=== PATIENT | female | born 1940 | race Two or more races ===

== ENCOUNTER 2016-08-31 07:55 | Inpatient (IN) | payer MEDICARE ==
[~2016-08-31] VITALS: Ht 154.9 cm; Wt 62.6 kg
--- NOTE | 2016-08-31 09:00 | NUR ---
GPS ADMITTING NOTE: PATIENT 76 Y/O FEMALE ADMITTED FROM [facility] FROM NURSING FACILITY PER 5150 HOLD FOR DTO ,GD PATIENT A/O TO SELF ONLY , CONFUSED ,DEMENTED, COMBATIVE,AGITATED PARANOID , PT HAS HX DEMENTIA, UPON F/F ASSESSMENT PATIENT CONFUSED , NOT MAKING ANY SENSE, CONFUSED UNABLE TO ANSWER ANY QUESTIONS, CAN NOT PROVIDE CLEAR HISTORY, NO C/O PAIN OR ANY COMPLAINS, DR GRAJEDA AWARE AND NOTIFIED TO RECONCILED MEDICATIONS , DR CHAND NOTIFIED WITH ADMITTING ORDERS , ALL BELONGINGS CHECKED.
[2016-08-31] MEDS ORDERED: CRAN3875 PO (09:13)
[2016-08-31] MEDS ORDERED: VITA1CAP PO (09:13)
[2016-08-31] MEDS ORDERED: SENN8.6T60 PO (09:13)
[2016-08-31] MEDS ORDERED: ACET325T53 PO (09:13)
[2016-08-31] MEDS ORDERED: MULT1TAB73 PO (09:16)
[2016-08-31] MEDS ORDERED: ZOLPIDEM TARTRATE 5 MG TABLET PO PRN (10:00)
[2016-08-31] MEDS ORDERED: MAGNESIUM HYDROXIDE 30 ML UDC PO PRN (10:00)
[2016-08-31] MEDS ORDERED: MAG HYDROX/AL HYDROX/SIMETH 30 ML UDC PO PRN (10:00)
[2016-08-31] MEDS ORDERED: ACETAMINOPHEN 325 MG TABLET PO PRN (10:00)
[2016-08-31] MEDS ORDERED: LORAZEPAM 0.5 MG TABLET PO PRN (10:00)
[2016-08-31 10:18] VITALS: BP 139/61
[2016-08-31 11:28] VITALS: BP 139/61
[2016-08-31 15:45] VITALS: BP 130/74
[2016-08-31] MEDS: QUETIAPINE FUMARATE 25 MG TABLET PO SCH ×2 (16:46→16:59)
[2016-08-31 20:14] VITALS: BP 134/81
[2016-09-01 07:34] LABS: BASOPHILS % (AUTO) 0.3 % (0.0-2.0); EOSINOPHILS # (AUTO) 0.1 /CMM (0.0-0.7); EOSINOPHILS % (AUTO) 1.2 % (0.0-6.0); HEMATOCRIT 44 % (33-45); HEMOGLOBIN 14.6 g/dL (11.5-14.8); LYMPHOCYTES # (AUTO) 1.6 /CMM (0.8-4.8); LYMPHOCYTES % (AUTO) 23.3 % (20.0-44.0); MEAN CORPUSCULAR HEMOGLOBIN 34 PG (26.0-33.0); MEAN CORPUSCULAR HGB CONC 34 g/dl (31.0-36.0); MEAN CORPUSCULAR VOLUME 101 fL (82-100); MONOCYTES # (AUTO) 0.8 /CMM (0.1-1.30); MONOCYTES % (AUTO) 12.3 % (2.0-12.0); NEUTROPHILS # (AUTO) 4.2 /CMM (1.8-8.9); NEUTROPHILS % (AUTO) 62.9 % (43.0-81.0); PLATELET COUNT (AUTO) 168 /CMM (150-450); RDW COEFFICIENT OF VARIATION 12.8 (11.5-15.0); RED BLOOD CELL COUNT(AUTO) 4.33 MIL/uL (4.0-5.2); WHITE BLOOD COUNT (AUTO) 6.7 K/uL (4.3-11.0)
[2016-09-01 08:51] LABS: ALBUMIN 4.1 g/dL (3.4-5.0); BILIRUBIN,TOTAL 0.9 mg/dL (0.2-1.0); CALCIUM, SERUM 9.6 mg/dL (8.5-10.1); CREATININE 0.6 mg/dL (0.6-1.3); POTASSIUM 4.1 mmol/L (3.5-5.1); TOTAL PROTEIN, SERUM 7.5 g/dL (6.4-8.2)
[2016-09-01 09:45] LABS: ALBUMIN 4.1 g/dL (3.4-5.0); BILIRUBIN,TOTAL 0.8 mg/dL (0.2-1.0); MAGNESIUM 1.9 mg/dL (1.8-2.4); PHOSPHORUS 4.2 mg/dL (2.5-4.9); TOTAL PROTEIN, SERUM 7.6 g/dL (6.4-8.2)
[2016-09-01 09:59] LABS: BILIRUBIN,DIRECT 0.2 mg/dL (0.0-0.2)
[2016-09-01] MEDS ORDERED: OLANZAPINE 10 MG VIAL IM STA (11:12)
--- NOTE | 2016-09-01 11:30 | NUR ---
ADMINISTERED ZYPREXA 5 MG/ML IM RIGHT OUTER GLUTEAL AREA FOR AGGRESSIVE BEHAVIOR, PARANOID, YELLING, PATIENT REFUSED TAKE MEDICATION PRESCRIBED, PATIENT REFUSED V/S TO BE TAKEN. PATIENT IN THE ROOM, SAFETY PRECAUTION MAINTAINED ALL THE TIME.
--- NOTE | 2016-09-01 13:14 | NUR ---
WOUND CARE CONSULT: PATIENT SEEN AND SKIN ASSESSMENT DONE. PATIENT ALERT, ALTERED MENTATION, AMBULATORY, INDEPENDENT WITH BED MOBILITY, CONTINENT, SAWYER 16. SEE TODAY'S SKIN ASSESSMENT IN PCS ALONG WITH RECOMMENDATIONS DISCUSSED WITH NURSING STAFF. MD IN AGREEMENT WITH PLAN OF CARE. Addendum: 09/01/16 at 1315 by JERED CEDENO WNDNU Amended: Links added.
[2016-09-01] MEDS: QUETIAPINE FUMARATE 25 MG TABLET PO SCH ×2 (14:06→17:50)
[2016-09-01 16:00] VITALS: BP 127/68
--- NOTE | 2016-09-01 16:14 | NUR ---
Initial Discharge Plan: Patient was currently residing at [facility] at [address] [place] [address] . SW spoke with patient's brother Robinson Crowder who confirmed that patient was living at the facility [facility]. SW spoke with Aracelis from the facility who confirmed that patient was living there but stated that someone from the hospital had spoken to her (possibly from [facility]) and recommended patient be in a locked facility. Patient may possibly need placement. SW will follow-up with MD, family, and patient regarding most appropriate discharge. SW will help form a safe and proper discharge.
[2016-09-01 16:26] LABS: CHOLESTEROL 192 mg/dL (<200); HDL CHOLESTEROL 76 mg/dL (40-60); LDL 100 mg/dL (0-99); TRIGLYCERIDES 49 mg/dL (30-150)
[2016-09-01] MEDS: NEOMY SULF/BACITRAC ZN/POLY 15 GM TUBE TP SCH (17:51)
[2016-09-01 20:00] VITALS: BP 158/75
--- NOTE | 2016-09-02 06:33 | NUR ---
GPS/RN NOTE: PATIENT REFUSED TO SIGN CONSENT FOR MRI. STATED." I WILL WALK OUT NOW IF YOU ARE GOING TO DO THAT."
--- NOTE | 2016-09-02 06:37 | NUR ---
GPS/RN NOTE: INSTRUCTED TO CALL WHEN READY TO COLLECT URINE. PATIENT UNDERSTOOD INSTRUCTION GIVEN.
--- NOTE | 2016-09-02 06:44 | NUR ---
TEXTED DR. HEATH FOR MRI APPROVAL.
[2016-09-02 06:54] LABS: BASOPHILS % (AUTO) 0.4 % (0.0-2.0); EOSINOPHILS # (AUTO) 0.1 /CMM (0.0-0.7); EOSINOPHILS % (AUTO) 1.1 % (0.0-6.0); HEMATOCRIT 41 % (33-45); HEMOGLOBIN 13.7 g/dL (11.5-14.8); LYMPHOCYTES # (AUTO) 1.3 /CMM (0.8-4.8); LYMPHOCYTES % (AUTO) 22.3 % (20.0-44.0); MEAN CORPUSCULAR HEMOGLOBIN 33 PG (26.0-33.0); MEAN CORPUSCULAR HGB CONC 33 g/dl (31.0-36.0); MEAN CORPUSCULAR VOLUME 100 fL (82-100); MONOCYTES # (AUTO) 0.8 /CMM (0.1-1.30); MONOCYTES % (AUTO) 13.7 % (2.0-12.0); NEUTROPHILS # (AUTO) 3.6 /CMM (1.8-8.9); NEUTROPHILS % (AUTO) 62.5 % (43.0-81.0); PLATELET COUNT (AUTO) 240 /CMM (150-450); RDW COEFFICIENT OF VARIATION 12.7 (11.5-15.0); RED BLOOD CELL COUNT(AUTO) 4.11 MIL/uL (4.0-5.2); WHITE BLOOD COUNT (AUTO) 5.8 K/uL (4.3-11.0)
[2016-09-02 08:00] VITALS: BP 151/81
[2016-09-02] MEDS: NEOMY SULF/BACITRAC ZN/POLY 15 GM TUBE TP SCH (08:57)
[2016-09-02] MEDS: QUETIAPINE FUMARATE 25 MG TABLET PO SCH ×3 (08:57→17:00)
[2016-09-02 11:41] LABS: APPEARANCE,URINE CLEAR (CLEAR); BILIRUBIN,URINE NEGATIVE (NEGATIVE); BLOOD, URINE NEGATIVE Ery/uL (NEGATIVE); COLOR,URINE YELLOW (YELLOW); KETONES,URINE NEGATIVE (NEGATIVE); LEUKOCYTE ESTERASE ,URINE NEGATIVE (NEGATIVE); NITRITE, URINE NEGATIVE (NEGATIVE); PROTEIN,URINE NEGATIVE (NEGATIVE); UGLUCOSE NEGATIVE (NEGATIVE); UROBILINOGEN,URINE 0.2 EU/dL (0.2)
[2016-09-02 12:01] LABS: CANNABINOID, URINE NEGATIVE (NEGATIVE); PHENCYCLIDINE SCREEN,URINE NEGATIVE (NEGATIVE)
--- NOTE | 2016-09-02 14:00 | NUR ---
PATIENT CONFUSED, DEMANDING, IRRITABLE EASILY, REFUSED DOPPLER US, EEG, MRI, AND MEDICATION, DR CHAND NOTIFIED.
--- NOTE | 2016-09-02 15:51 | NUR ---
Psychosocial assessment was reviewed and I concur with the information provided. No changes are necessary. Angelita Vásquez, [facility] [id number] Addendum: 09/02/16 at 1551 by ANGELITA VÁSQUEZ SW Amended: Links added.
[2016-09-02 16:00] VITALS: BP 136/77
--- NOTE | 2016-09-02 17:00 | NUR ---
patient a/o x1, confused, irritable, refused 1300, and 1700 medication, dr lamb aware of, also notified brother. continued monitoring.
[2016-09-02 20:16] VITALS: BP 127/58
--- NOTE | 2016-09-02 21:02 | NUR ---
RN NOTES: PATIENT AMBULATES IN THE HALLWAY, STEADY GAIT,A/O X2 WITH CONFUSION, NOTED DISORGANIZE THOUGHTS, DELUSIONAL, HARD TO FOLLOW DIRECTION, REFUSED MRI BRAIN WWO CONTRAST,ALSO REFUSING MEDICATIONS, MD AWARE, SAFETY PRECAUTIONS MAINTAINED AT ALL TIMES, WILL CONTINUE TO MONITOR Q 15 MINS. TO MAINTAIN SAFETY, AND MONITOR CHANGES IN BEHAVIOR.
--- NOTE | 2016-09-03 06:29 | NUR ---
UNABLE TO DO MRI, PATIENT CONFUSED.NO MRI CHECKLIST/PATIENT REFUSED 09/02/2016
[2016-09-03 08:39] VITALS: BP 120/70
[2016-09-03] MEDS: NEOMY SULF/BACITRAC ZN/POLY 15 GM TUBE TP SCH (09:22)
[2016-09-03] MEDS: QUETIAPINE FUMARATE 25 MG TABLET PO SCH ×3 (09:22→17:00)
--- NOTE | 2016-09-03 13:41 | NUR ---
SAMIR faxed clinicals to [facility] for Review. SAMIR will follow-up with admissions.
[2016-09-03 15:53] VITALS: BP 151/73
[2016-09-03 20:41] VITALS: BP 129/76
--- NOTE | 2016-09-03 20:44 | NUR ---
GPS/RN NOTE: AWAKE, ALERT, ORIENTED X3. AMBULATORY, SELF CARE. NO APPARENT DISTRESS NOTED. COOPERATIVE, CALM. SELF CARE. WILL CONTINUE TO MONITOR Q 15 MINS. TO MAINTAIN SAFETY
[2016-09-04 08:00] VITALS: BP 138/67
[2016-09-04] MEDS: QUETIAPINE FUMARATE 25 MG TABLET PO SCH ×3 (09:00→17:00)
[2016-09-04] MEDS: NEOMY SULF/BACITRAC ZN/POLY 15 GM TUBE TP SCH (09:31)
--- NOTE | 2016-09-04 13:22 | NUR ---
CHECKED WITH THE PATIENT'S NURSE TODAY FOR MRI,STILL REFUSING MAY BE TOMORROW PER NURSE.
[2016-09-04 16:00] VITALS: BP 140/73
--- NOTE | 2016-09-04 18:12 | NUR ---
PATIENT A/O X1, CONFUSED, REFUSED 0900 ,1300, AND 1700 MEDICATION DELUSIONAL, PACING AROUND, DR CHAND AWARE OF. CONTINUED MONITORING.
[2016-09-04 20:00] VITALS: BP 127/63
--- NOTE | 2016-09-04 20:00 | NUR ---
RN OPENING NOTES FOUND Pt IN ACTIVITY ROOM. UP AMBULATING. NO S/S OF ACUTE DISTRESS OR SOB NOTED. NON COMPLIANT WITH MEDS. SELF-CARE. NO COMPLAINTS MADE AT THIS TIME. OFFERED SLEEPING PILL, WILL REQUEST IF NEEDED AT A LATER TIME. WILL CONTINUE TO MONITOR Q15MIN FOR SAFETY.
--- NOTE | 2016-09-04 21:34 | NUR ---
RN NOTES REPORT GIVEN TO SARAH RILEY FOR RACHEAL OF Pt.
[2016-09-05 08:11] VITALS: BP 107/59
[2016-09-05] MEDS: QUETIAPINE FUMARATE 25 MG TABLET PO SCH ×3 (09:00→16:54)
[2016-09-05] MEDS: NEOMY SULF/BACITRAC ZN/POLY 15 GM TUBE TP SCH (09:00)
[2016-09-05] MEDS ORDERED: OLANZAPINE 10 MG VIAL IM PRN ×2 (10:30→13:00)
[2016-09-05] MEDS ORDERED: QUETIAPINE FUMARATE 25 MG TABLET PO SCH (10:30)
--- NOTE | 2016-09-05 15:08 | NUR ---
SAMIR faxed clinicals to Aracelis (fax:[phone]/ phone: [phone]) from [facility] at [address] [place] [address], for review, SAMIR will follow-up.
[2016-09-05 16:02] VITALS: BP 114/67
--- NOTE | 2016-09-05 19:30 | NUR ---
GPS RN NOTE, RECEIVED PATIENT AWAKE AND IN BED, NO S/S OR COMPLAINTS OF PAIN AT THIS TIME. PATIENT IS DISPLAYING NO S/S OF APPARENT DISTRESS AT THIS TIME. PATIENT BREATHING IS UNLABORED WITH EQUAL RISE AND FALL OF THE CHEST. PATIENT IS ALERT AND ORIENTED X 2-3 ON ROOM AIR WITH A SPO2 99%. PATIENT COMPLIANT WITH MEDICATIONS, ANXIOUS, EASILY AGITATED WITH CARE, DISORGANIZED, CONFUSED AT TIMES, AND NEEDS REORIENTATION. PATIENT DENIES SUICIDE AND HOMICIDAL IDEATIONS AT THIS TIME. PATIENT ASSISTED WITH TURNING AND REPOSITIONING Q2HR AND PRN FOR COMFORT AND CIRCULATION. PATIENT HAS NO NEEDS AT THIS TIME. PATIENT REFUSED SKIN ASSESSMENT TODAY. PATIENT EDUCATED ON THE USE OF THE CALL ISSA. PATIENT BED SIDE RAILS UP X2 FOR SAFETY, BED IS LOCKED AND LOW WILL CONTINUE TO MONITOR AND MAINTAIN SAFETY.
[2016-09-05 20:00] VITALS: BP 117/71
[2016-09-06 08:33] VITALS: BP 134/68
[2016-09-06] MEDS: QUETIAPINE FUMARATE 25 MG TABLET PO SCH ×3 (08:58→17:27)
[2016-09-06] MEDS: NEOMY SULF/BACITRAC ZN/POLY 15 GM TUBE TP SCH (08:59)
[2016-09-06 16:18] VITALS: BP 138/65
[2016-09-06 20:00] VITALS: BP 141/76
--- NOTE | 2016-09-06 20:00 | NUR ---
PATIENT IN ACTIVITY ROOM, ALERT, ABLE TO ANSWERS QUESTIONS APPROPRIATELY, INCOHERENT AT TIMES, WITH EPISODES OF RESTLESSNESS, ABLE TO AMBULATE. ENSURED SAFETY, WILL CONTINUE TO MONITOR.
[2016-09-06 22:00] VITALS: BP 141/76
--- NOTE | 2016-09-07 06:25 | NUR ---
PATIENT IS AWAKE AND ALERT, CALM, NO COMPLAIN OF PAIN, ABLE TO AMBULATE WITHOUT ASSISTANCE, SLEPT THROUGH THE NIGHT AFTER RECEIVING AMBIEN. NO BEHAVIOR CHANGE DURING SHIFT, KEPT SAFE AND COMFORTABLE.
--- NOTE | 2016-09-07 06:25 | NUR ---
PATIENT IN BED, RESTING COMFORTABLY, NO SOB, NOT IN APPARENT PAIN, NO FACIAL GRIMACING, NO BEHAVIORAL DISTURBANCE DURING SHIFT. KEPT SAFE AND COMFORTABLE. WILL CONTINUE TO MONITOR.
[2016-09-07 08:00] VITALS: BP 127/61
[2016-09-07] MEDS: NEOMY SULF/BACITRAC ZN/POLY 15 GM TUBE TP SCH (08:32)
[2016-09-07] MEDS: QUETIAPINE FUMARATE 25 MG TABLET PO SCH ×3 (08:32→17:00)
[2016-09-07 16:00] VITALS: BP 121/68
[2016-09-07 20:18] VITALS: BP 120/55
[2016-09-08 08:00] VITALS: BP 127/73
[2016-09-08] MEDS: NEOMY SULF/BACITRAC ZN/POLY 15 GM TUBE TP SCH (09:01)
[2016-09-08] MEDS: QUETIAPINE FUMARATE 25 MG TABLET PO SCH ×4 (09:01→21:31)
[2016-09-08] MEDS ORDERED: OLANZAPINE 10 MG VIAL IM PRN (13:00)
[2016-09-08 16:00] VITALS: BP 121/70
--- NOTE | 2016-09-08 16:06 | NUR ---
SW spoke to Feroz from [facility] [place] who stated that they have no female beds available at the moment and would not be able to accept the patient at this time.
[2016-09-08 20:00] VITALS: BP 123/66
[2016-09-09 08:21] LABS: CALCIUM, SERUM 8.6 mg/dL (8.5-10.1); CREATININE 0.6 mg/dL (0.6-1.3); MAGNESIUM 1.5 mg/dL (1.8-2.4); PHOSPHORUS 3.6 mg/dL (2.5-4.9); POTASSIUM 4.1 mmol/L (3.5-5.1)
[2016-09-09 08:29] VITALS: BP 143/68
[2016-09-09 08:36] LABS: BASOPHILS % (AUTO) 0.3 % (0.0-2.0); EOSINOPHILS # (AUTO) 0.1 /CMM (0.0-0.7); HEMATOCRIT 38 % (33-45); HEMOGLOBIN 12.8 g/dL (11.5-14.8); LYMPHOCYTES # (AUTO) 1.1 /CMM (0.8-4.8); LYMPHOCYTES % (AUTO) 28.7 % (20.0-44.0); MEAN CORPUSCULAR HEMOGLOBIN 33 PG (26.0-33.0); MEAN CORPUSCULAR HGB CONC 34 g/dl (31.0-36.0); MEAN CORPUSCULAR VOLUME 99 fL (82-100); MONOCYTES # (AUTO) 0.7 /CMM (0.1-1.30); PLATELET COUNT (AUTO) 206 /CMM (150-450); RDW COEFFICIENT OF VARIATION 12.4 (11.5-15.0); RED BLOOD CELL COUNT(AUTO) 3.85 MIL/uL (4.0-5.2); WHITE BLOOD COUNT (AUTO) 3.9 K/uL (4.3-11.0)
[2016-09-09] MEDS: QUETIAPINE FUMARATE 25 MG TABLET PO SCH ×4 (09:16→20:37)
[2016-09-09] MEDS: NEOMY SULF/BACITRAC ZN/POLY 15 GM TUBE TP SCH (09:16)
[2016-09-09 10:47] LABS: BAND % (MANUAL) 1 % (0.0-5.0); BASOPHILS % (MANUAL) 1 % (0.0-2.0); EOSINOPHILS % (MANUAL) 3 % (0-4); LYMPHOCYTES % (MANUAL) 31 % (16-48); MONOCYTES % (MANUAL) 9 % (0-11.0); NEUTROPHILS % (MANUAL) 55 (42-76)
[2016-09-09 10:48] LABS: PLATELET ESTIMATE ADEQUATE
--- NOTE | 2016-09-09 14:00 | NUR ---
DR. CIRSTOBAL,DR. CHAND IN TO SEE PT.
--- NOTE | 2016-09-09 14:21 | NUR ---
Patient was accepted to [facility] [address] [place] [address] .
[2016-09-09] MEDS ORDERED: MAGNESIUM OXIDE 400 MG TABLET PO ONE (14:30)
--- NOTE | 2016-09-09 15:08 | NUR ---
GIVEN MG OXIDE FOR MG LEVEL OF 1.5.
[2016-09-09 16:46] VITALS: BP 109/65
[2016-09-09 20:27] VITALS: BP 105/69
[2016-09-10] MEDS: NEOMY SULF/BACITRAC ZN/POLY 15 GM TUBE TP SCH (08:35)
[2016-09-10] MEDS: QUETIAPINE FUMARATE 25 MG TABLET PO SCH ×4 (08:35→21:34)
[2016-09-10 09:28] VITALS: BP 130/74
[2016-09-10 16:33] VITALS: BP 119/60
--- NOTE | 2016-09-10 17:00 | NUR ---
DR. CRISTOBAL,DR. CHAND IN TO SEE PT.
--- NOTE | 2016-09-10 19:40 | NUR ---
GPS/RN NOTE: AMBULATING AT THE HALLWAY CONFUSED, REDIRECTED TO HER ROOM. NO ACUTE DISTRESS NOTED. WILL CONTINUE TO MONITOR Q 15 MINS. TO MAINTAIN SAFETY.
[2016-09-10 20:05] VITALS: BP 120/65
[2016-09-11 07:17] LABS: BASOPHILS % (AUTO) 0.4 % (0.0-2.0); EOSINOPHILS # (AUTO) 0.1 /CMM (0.0-0.7); EOSINOPHILS % (AUTO) 1.5 % (0.0-6.0); HEMATOCRIT 41 % (33-45); LYMPHOCYTES # (AUTO) 1.2 /CMM (0.8-4.8); LYMPHOCYTES % (AUTO) 28.1 % (20.0-44.0); MEAN CORPUSCULAR HEMOGLOBIN 34 PG (26.0-33.0); MEAN CORPUSCULAR HGB CONC 34 g/dl (31.0-36.0); MEAN CORPUSCULAR VOLUME 99 fL (82-100); MONOCYTES # (AUTO) 0.6 /CMM (0.1-1.30); MONOCYTES % (AUTO) 13.4 % (2.0-12.0); NEUTROPHILS # (AUTO) 2.5 /CMM (1.8-8.9); NEUTROPHILS % (AUTO) 56.6 % (43.0-81.0); PLATELET COUNT (AUTO) 210 /CMM (150-450); RDW COEFFICIENT OF VARIATION 12.7 (11.5-15.0); RED BLOOD CELL COUNT(AUTO) 4.17 MIL/uL (4.0-5.2); WHITE BLOOD COUNT (AUTO) 4.4 K/uL (4.3-11.0)
[2016-09-11 07:36] LABS: CALCIUM, SERUM 8.8 mg/dL (8.5-10.1); CREATININE 0.7 mg/dL (0.6-1.3); MAGNESIUM 1.9 mg/dL (1.8-2.4); PHOSPHORUS 3.7 mg/dL (2.5-4.9); POTASSIUM 3.8 mmol/L (3.5-5.1)
[2016-09-11 08:00] VITALS: BP 124/68
--- NOTE | 2016-09-11 08:00 | NUR ---
GPS RN AM NOTES PATIENT IN BED, ALERT, ABLE TO ANSWERS QUESTIONS APPROPRIATELY, INCOHERENT AT TIMES, WITH EPISODES OF RESTLESSNESS, ABLE TO AMBULATE.PACING IN THE HALLWAY. ENSURED SAFETY, WILL CONTINUE TO MONITOR.
[2016-09-11] MEDS: QUETIAPINE FUMARATE 25 MG TABLET PO SCH (08:41)
--- NOTE | 2016-09-11 09:24 | NUR ---
PT. WITH AN ORDER TO D/C HOLD AND D/C TO [facility]. WITHOUT DISTRESS, DENIES SUICIDAL AND HOMICIDAL. TO FOLLOW UP WITH PSYCH AND MEDICAL DOCTORS.
[2016-09-11] MEDS: NEOMY SULF/BACITRAC ZN/POLY 15 GM TUBE TP SCH (09:40)
--- NOTE | 2016-09-11 11:27 | NUR ---
CHON CRISTOBAL CHROME POLISHER NOTIFIED ABOUT THE DISCHARGE AND SAID OK FOR DISCHARGE AND RECONCILED MEDS.
--- NOTE | 2016-09-11 11:45 | NUR ---
CALLED IN REPORT TO [facility] RN SYBASE DEVELOPER,CATHY.PT IS BEING PICKED UP BY AMBULANCE AT THIS TIME.REPORT AND PT BELONGINGS GIVEN TO DIRECTOR OF MEDICAL EDUCATION.
--- NOTE | 2016-09-11 12:05 | NUR ---
DISCHARGED TO [facility] VIA AMBULANCE WITH STABLE V/S.
--- NOTE | 2016-09-11 15:17 | NUR ---
Discharge note: Pt was discharged to [facility] [id number] [place] [address]. [place] [address] via [facility]. Pt. was calm and cooperative and agreed with the discharge plan . Pt's brother, Robinson Vallejo [phone] also agreed with the discharge plan. Pt. denied suicidal/homicidal ideations upon discharge and was transferred after RN provided discharge instructions to the accepting facility. All discharge paperwork has been signed.
== END 2016-09-11 12:05 | DRG 885 ==
LOC: GPS 08:39
PROVIDERS: ADMIT Psychiatry & Neurology Psychiatry; ATTEND Internal Medicine
DX: F29 Unspecified psychosis not due to a substance or known physiological condition (principal); F03.91 Unspecified dementia, unspecified severity, with behavioral disturbance; E78.5 Hyperlipidemia, unspecified; F03.90 Unspecified dementia, unspecified severity, without behavioral disturbance, psychotic disturbance, mood disturbance, and anxiety; E83.42 Hypomagnesemia
CPT/HCPCS: 36415; 80048-TC; 80053-TC; 80061-TC; 80076-TC; 80305; 81000-TC; 82746; 83735-TC; 84100-TC; 85025-TC; 85652-TC; 87081-TC; 97001-TC; J3490; Z7610

== ENCOUNTER 2016-12-31 08:13 | Emergency (ER) | payer MEDICARE ==
[~2016-12-31] VITALS: Ht 170.2 cm; Wt 56.7 kg
[~2016-12-31 08:13] MED LIST: ACET325T53 PO; CRAN3875 PO; MULT1TAB73 PO; SENN8.6T60 PO; VITA1CAP PO
--- NOTE | 2016-12-31 08:20 | NUR ---
PT PASQUALE FROM [facility] FOR [facility]LE [facility]EN[facility] AND SWELLING. PT AAOX3. NAD NOTED. VSS. PER PT DOPPLER STUDY WAS DONE YESTERDAY BUT SHE IS NOT SURE IF IT WAS DONE PROPERLY SO SHE WANTS IT TO BE DONE AGAIN. SEEN BY MD FOR EVAL. SAFETY AND COMFORT MEASURES PROVIDED. WILL MONITOR.
--- NOTE | 2016-12-31 08:25 | NUR ---
MANAGER DIESEL AT FOR BLOOD DRAW.
[2016-12-31 08:39] LABS: BASOPHILS % (AUTO) 0.4 % (0.0-2.0); EOSINOPHILS % (AUTO) 0.8 % (0.0-6.0); HEMATOCRIT 41 % (33-45); HEMOGLOBIN 13.8 g/dL (11.5-14.8); LYMPHOCYTES # (AUTO) 0.9 /CMM (0.8-4.8); LYMPHOCYTES % (AUTO) 20.2 % (20.0-44.0); MEAN CORPUSCULAR HEMOGLOBIN 31 PG (26.0-33.0); MEAN CORPUSCULAR HGB CONC 34 g/dl (31.0-36.0); MEAN CORPUSCULAR VOLUME 91 fL (82-100); MONOCYTES # (AUTO) 0.5 /CMM (0.1-1.30); MONOCYTES % (AUTO) 11.7 % (2.0-12.0); NEUTROPHILS % (AUTO) 66.9 % (43.0-81.0); PLATELET COUNT (AUTO) 194 /CMM (150-450); RDW COEFFICIENT OF VARIATION 13.7 (11.5-15.0); RED BLOOD CELL COUNT(AUTO) 4.46 MIL/uL (4.0-5.2); WHITE BLOOD COUNT (AUTO) 4.5 K/uL (4.3-11.0)
[2016-12-31 08:52] LABS: CARBON DIOXIDE 27 mmol/L (21-32); CHLORIDE 105 mmol/L (98-107); CREATININE 0.7 mg/dL (0.6-1.3); GLUCOSE 76 mg/dL (74-106); POTASSIUM 3.8 mmol/L (3.5-5.1); SODIUM SERUM 142 mmol/L (136-145); UREA NITROGEN, BLOOD 12 mg/dL (7-18)
[2016-12-31 08:58] LABS: INR 1.04 (0.87-1.13); PROTHROMBIN TIME 11.1 SECS (9.5-12.7)
--- NOTE | 2016-12-31 09:03 | NUR ---
MEG CAZARES AT FOR DOPPLER STUDY.
[2016-12-31] MEDS ORDERED: APIXABAN 5 MG TABLET PO STA (09:49)
--- NOTE | 2016-12-31 09:50 | NUR ---
CALLED [facility] ETA 1:00-1:15 PER FLAKITO
--- NOTE | 2016-12-31 11:20 | NUR ---
Patient discharged back to facility in a stable condition. Written and verbal after care instructions given. Patient verbalizes understanding of instruction.
--- NOTE | 2016-12-31 11:30 | NUR ---
REPORT GIVEN TO [facility] FOR TRANSFER BACK TO [facility].
[2016-12-31 11:54] VITALS: BP 127/74
== END 2016-12-31 11:54 | disposition home or self-care (01) ==
LOC: ER 08:15
DX: I82.4Z3 Acute embolism and thrombosis of unspecified deep veins of distal lower extremity, bilateral (principal); Z79.01 Long term (current) use of anticoagulants; Z86.718 Personal history of other venous thrombosis and embolism
CPT/HCPCS: 36415; 80048; 85025; 85730; 93971; 99285; A4606; Z7610

== ENCOUNTER 2017-12-12 19:36 | Emergency (ER) | payer MEDICARE, BC ==
[~2017-12-12] VITALS: Ht 175.3 cm; Wt 72.6 kg
--- NOTE | 2017-12-12 20:00 | NUR ---
PT [facility] FROM [facility] "I HAVE A DVT ON MY RIGHT LEG AND MAYBE LEFT". NAD NOTED. VSS. SEEN BY PA FOR EVAL. PT AAOX4. AMBULATORY. SAFETY AND COMFORT MEASURES PROVIDED. WILL MONITOR.
--- NOTE | 2017-12-12 20:40 | NUR ---
IV ACCESS STARTED. BLOOD DRAWN FOR LABS.
[2017-12-12 20:45] LABS: BASOPHILS # (AUTO) 0.1 /CMM (0.0-0.2); BASOPHILS % (AUTO) 1.6 % (0.0-2.0); EOSINOPHILS % (AUTO) 1.2 % (0.0-6.0); HEMATOCRIT 38 % (33-45); LYMPHOCYTES # (AUTO) 1.2 /CMM (0.8-4.8); LYMPHOCYTES % (AUTO) 26.8 % (20.0-44.0); MEAN CORPUSCULAR HEMOGLOBIN 30 PG (26.0-33.0); MEAN CORPUSCULAR HGB CONC 34 g/dl (31.0-36.0); MEAN CORPUSCULAR VOLUME 88 fL (82-100); MONOCYTES # (AUTO) 0.5 /CMM (0.1-1.30); MONOCYTES % (AUTO) 11.1 % (2.0-12.0); NEUTROPHILS # (AUTO) 2.7 /CMM (1.8-8.9); NEUTROPHILS % (AUTO) 59.3 % (43.0-81.0); PLATELET COUNT (AUTO) 249 /CMM (150-450); RDW COEFFICIENT OF VARIATION 12.6 (11.5-15.0); RED BLOOD CELL COUNT(AUTO) 4.32 MIL/uL (4.0-5.2); WHITE BLOOD COUNT (AUTO) 4.6 K/uL (4.3-11.0)
--- NOTE | 2017-12-12 20:54 | NUR ---
US TECH AT BS.
[2017-12-12 20:55] LABS: CARBON DIOXIDE 31 mmol/L (21-32); CHLORIDE 102 mmol/L (98-107); CREATININE 0.8 mg/dL (0.6-1.3); GLUCOSE 90 mg/dL (74-106); SODIUM SERUM 138 mmol/L (136-145); UREA NITROGEN, BLOOD 18 mg/dL (7-18)
[2017-12-12 20:59] LABS: INR 1.13 (0.85-1.15)
[2017-12-12 21:03] LABS: TROPONIN I < 0.017 ng/mL (0.00-0.056)
[2017-12-12 21:07] LABS: B-TYPE NATRIURETIC PEPTIDE 223 PG/ML (0-125)
--- NOTE | 2017-12-12 23:00 | NUR ---
PROVDIED PT WITH FOOD REQUESTED.
--- NOTE | 2017-12-12 23:53 | NUR ---
TRIP NUMBER; [id number] ETA 1:30
--- NOTE | 2017-12-13 00:32 | NUR ---
Patient discharged to home in stable condition. Written and verbal after care instructions given. Patient verbalizes understanding of instruction. PT REC'D A COPY OF ALL RESULTS. PT WANTED TO TAKE A TAXI HOME. DR. BRADFORD IS OK WITH PT TAKING A TAXI HOME. PT AMBULATED TO THE LOBBY TO WAIT FOR A TAXI. PT'S VSS. NAD NOTED.
[2017-12-13 00:33] VITALS: BP 138/67
--- NOTE | 2017-12-13 00:39 | NUR ---
CALLED ABEBA AT [facility] TO LET HER KNOW THAT THE PT WAS RETURNING VIA TAXI.
== END 2017-12-13 00:32 | disposition home or self-care (01) ==
LOC: ER 19:38
DX: R60.0 Localized edema (principal); I87.2 Venous insufficiency (chronic) (peripheral); M79.89 Other specified soft tissue disorders; R79.89 Other specified abnormal findings of blood chemistry; F03.90 Unspecified dementia, unspecified severity, without behavioral disturbance, psychotic disturbance, mood disturbance, and anxiety; G40.909 Epilepsy, unspecified, not intractable, without status epilepticus; I10 Essential (primary) hypertension; Z86.718 Personal history of other venous thrombosis and embolism; Z88.8 Allergy status to other drugs, medicaments and biological substances
CPT/HCPCS: 36415; 80048; 83880; 84484; 85025; 85730; 93005; 93970; 99285; A4606; Z7610